=== PATIENT | male | born 1925 | race Caucasian/White ===

== ENCOUNTER 2016-07-07 10:10 | Outpatient (CLI) | payer MEDICARE ==
[2016-07-07 11:18] LABS: Prothrombin Time 48.6 SEC (12.0-14.7)
== END 2016-07-07 10:11 | disposition home or self-care (01) ==
LOC: BURLAB 10:10
PROVIDERS: ATTEND Family Medicine
DX: I48.91 Unspecified atrial fibrillation (principal)
CPT/HCPCS: 36415; 85610

== ENCOUNTER 2016-07-09 17:41 | Outpatient (CLI) | payer MEDICARE ==
[2016-07-09 18:12] LABS: Prothrombin Time 20.9 SEC (12.0-14.7)
== END 2016-07-09 17:42 | disposition home or self-care (01) ==
LOC: BURLAB 17:41
PROVIDERS: ATTEND Family Medicine
DX: I48.91 Unspecified atrial fibrillation (principal)
CPT/HCPCS: 36415; 85610

== ENCOUNTER 2016-07-15 18:20 | Emergency (ER) | payer MEDICARE ==
[2016-07-15] MEDS ORDERED: Sulfameth/Trimethoprim DS 800-160mg TAB ONE (18:51)
[2016-07-15] MEDS ORDERED: Adacel (T-DAP) 0.5 ML VIAL ONE (18:51)
[2016-07-15 19:33] LABS: Prothrombin Time 16.9 SEC (12.0-14.7)
--- NOTE | 2016-07-15 20:47 | RAD ---
RIGHT RING FINGER 07/15/16 Three views show a mildly comminuted fracture of the distal phalanx mainly the region around the ter harry tuft. There is slight displacement of fracture fragments. The remainder of the finger appears intact. IMPRESSION: Distal phalanx fracture. POS: HOME
== END 2016-07-15 19:57 | disposition home or self-care (01) ==
LOC: BURERS 18:20
DX: S62.634B Displaced fracture of distal phalanx of right ring finger, initial encounter for open fracture (principal); I10 Essential (primary) hypertension; E11.9 Type 2 diabetes mellitus without complications; F41.9 Anxiety disorder, unspecified; W45.8XXA Other foreign body or object entering through skin, initial encounter
CPT/HCPCS: 85610; 90471; 90715

== ENCOUNTER 2016-07-19 14:50 | Outpatient (CLI) | payer MEDICARE ==
[2016-07-19 15:41] LABS: Prothrombin Time 14.1 SEC (12.0-14.7)
== END 2016-07-19 14:51 | disposition home or self-care (01) ==
LOC: BURLAB 14:50
PROVIDERS: ATTEND Family Medicine
DX: I48.91 Unspecified atrial fibrillation (principal)
CPT/HCPCS: 36415; 85610

== ENCOUNTER 2016-07-26 12:39 | Outpatient (CLI) | payer MEDICARE ==
[2016-07-26 13:11] LABS: Prothrombin Time 19.8 SEC (12.0-14.7)
== END 2016-07-26 12:40 | disposition home or self-care (01) ==
LOC: BURLAB 12:39
PROVIDERS: ATTEND Family Medicine
DX: I48.91 Unspecified atrial fibrillation (principal)
CPT/HCPCS: 36415; 85610

== ENCOUNTER 2016-08-03 14:16 | Outpatient (CLI) | payer MEDICARE ==
[2016-08-03 14:51] LABS: Prothrombin Time 25.2 SEC (12.0-14.7)
== END 2016-08-03 14:17 | disposition home or self-care (01) ==
LOC: BURLAB 14:16
PROVIDERS: ATTEND Family Medicine
DX: I48.91 Unspecified atrial fibrillation (principal)
CPT/HCPCS: 36415; 85610